=== PATIENT | female | born 1985 | race Caucasian/White ===

== ENCOUNTER 2016-08-19 16:29 | Emergency (ER) | payer OTHER ==
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
--- NOTE | 2016-08-21 07:16 | OR ---
ADMIT: 08/19/2016 RM/LOC: ER [facility] MR#: [id number] [address] [address] TESSA FRANZ [address] [place] [address] Operative/Delivery Room Report SEX: F AGE: 31 : 1985 SURGERY DATE: 08/19/2016 SURGEON: Navjot Salazar MD PREPROCEDURAL DIAGNOSIS: Stellate avulsion involving the right frontoparietal region with greater than 15 cm of avulsion edge length involving the temporalis fascia and musculature itself without sign of skull fracture. POSTPROCEDURAL DIAGNOSIS: Stellate avulsion involving the right frontoparietal region with greater than 15 cm of avulsion edge length involving the temporalis fascia and musculature itself without sign of skull fracture. PROCEDURE: Emergency room irrigation and debridement and hemostasis of heavily bleeding scalp avulsion for possible definitive closure with the understanding that this may need further evaluation on stabilizing the patient in transfer. This was a multilayer closure. DESCRIPTION OF PROCEDURE: Due to the patient's bleeding, an informed consent was inferred. She was irrigated with 1 L of saline and then another 0.5 L of hydrogen peroxide, and then irrigated and cleansed with 0.5 L of iodine solution. She was prepped and draped in a sterile fashion. Utilizing a sterile technique, I further evaluated to make sure that there was no other sign of depressed skull fracture or other emergent issue and none was found. A large amount of blood clot was taken out of the subgaleal space posteriorly over the parietal region. The anterior branch of the superficial temporal artery was monopolar electrocauterized, as was the secondary branch off this higher up and a few intramuscular branches that were bleeding very heavily. Utilizing simple, running 2-0 Vicryl, the temporalis muscle and fascia was reapproximated as best as could be in its torn up state. Simple, inverted, and interrupted 2-0 Vicryl was then used in the galeal tissue to reapproximate the stellate lesion itself, and then a simple running 4-0 nylon was used on the skin. Some of the edges, especially in the squared off area, were somewhat thinned and did not appear to have substantial blood flow from them leaving concern for possible necrosis later. At the time of closure though, bleeding had been controlled. There was no further sign of need for intervention in relation to this wound. Navjot Salazar MD/ theresa JOB #: [id number] CC: Wan Dobbs MD, Attending Physician Navjot Salazar MD, Family Physician
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
== END 2016-08-19 18:25 | disposition short-term general hospital (02) ==
LOC: ER 16:29
PROC: 0T9B70Z Drainage of Bladder with Drainage Device, Via Natural or Artificial Opening (ICD-10-PCS; principal; 2016-08-19)
PROC: 0HQ0XZZ Repair Scalp Skin, External Approach (ICD-10-PCS; principal; 2016-08-19)
PROC: 0BH17EZ Insertion of Endotracheal Airway into Trachea, Via Natural or Artificial Opening (ICD-10-PCS; principal; 2016-08-19)
DX: S12.501A Unspecified nondisplaced fracture of sixth cervical vertebra, initial encounter for closed fracture (principal); S12.601A Unspecified nondisplaced fracture of seventh cervical vertebra, initial encounter for closed fracture; S12.400A Unspecified displaced fracture of fifth cervical vertebra, initial encounter for closed fracture; S01.01XA Laceration without foreign body of scalp, initial encounter; J45.909 Unspecified asthma, uncomplicated; I10 Essential (primary) hypertension; Z79.01 Long term (current) use of anticoagulants; Z79.899 Other long term (current) drug therapy; Z88.0 Allergy status to penicillin; Z91.040 Latex allergy status; V43.52XA Car driver injured in collision with other type car in traffic accident, initial encounter